=== PATIENT | female | born 1950 | race Caucasian/White ===

== ENCOUNTER → 2017-11-13 | Outpatient (CLI) | payer OTHER ==
[~2017-11-13] MED LIST: LOPRESSOR100 M1 PO
== END ==
LOC: M.CT 08:30
DX: Z13.6 Encounter for screening for cardiovascular disorders (principal)

== ENCOUNTER → 2018-01-19 | Outpatient (CLI) | payer MEDICARE ==
[2018-01-19 09:41] LABS: CHOLESTEROL 95 mg/dL (<200); HDL CHOLESTEROL 40 mg/dL (>40); LDL CHOLESTEROL 27 mg/dL (<100); TC:HDL 2.4 Ratio (Not establshd); TRIGLYCERIDE 144 mg/dL (<150); VLDL 29 mg/dL (<40)
[2018-01-19 09:43] LABS: SERUM ASSESSMENT Clear
== END ==
LOC: M.LAB 09:03
PROVIDERS: Internal Medicine Cardiovascular Disease
DX: E78.2 Mixed hyperlipidemia (principal)

== ENCOUNTER 2018-12-21 10:14 | Emergency (ER) | payer MEDICARE ==
[~2018-12-21] VITALS: Ht 170.2 cm; Wt 87.5 kg
[2018-12-21] MEDS ORDERED: NORVASC5 MG PO (10:29)
[2018-12-21] MEDS ORDERED: PROBIOTIC1 EAC1 PO (10:29)
[2018-12-21] MEDS ORDERED: ASPIR 8181 MG PO (10:29)
[2018-12-21] MEDS ORDERED: HYDROCHLOROTHIA25 M2 PO (10:29)
[2018-12-21] MEDS ORDERED: LOPRESSOR100 M1 PO (10:29)
[2018-12-21] MEDS ORDERED: HAIR-SKIN-NAIL1 EACH PO (10:30)
[2018-12-21] MEDS ORDERED: SUPER B COMPLE1 EAC2 PO (10:30)
[2018-12-21] MEDS ORDERED: AMOXICILLIN-CL1 EACH PO (10:30)
[2018-12-21] MEDS ORDERED: EFFER-K 10 MEQ10 ME1 PO (10:31)
[2018-12-21] MEDS ORDERED: HEART MEDICATION (10:32)
[2018-12-21 10:35] LABS: ABSOLUTE BASOPHILS 0.1 thou/uL (0.0-0.2); ABSOLUTE EOSINOPHILS 0.1 thou/uL (0.0-0.7); ABSOLUTE LYMPHOCYTES 1.2 thou/uL (0.8-5.3); ABSOLUTE MONOCYTES 0.6 thou/uL (0.0-1.2); ABSOLUTE NEUTROPHILS 5.7 thou/uL (1.6-8.1); BASOPHILS 1.2 %; EOSINOPHILS 1.8 %; HEMATOCRIT 37.1 % (37.0-47.0); HEMOGLOBIN 12.6 gm/dL (12.0-15.0); LYMPHOCYTES 15.6 %; MCH 27.4 pg (26.0-34.0); MCHC 33.8 g/dL (28.0-37.0); MCV 80.9 fL (80.0-100.0); MONOCYTES 7.8 %; MPV 7.9 fl. (7.2-11.1); NUCLEATED RBCS 0 /100WBC; PLATELET COUNT* 242 thou/uL (150-400); POLYS 73.6 %; RBC 4.59 mil/uL (4.20-5.00); RDW-CV 14.4 % (10.5-14.5); WBC 7.8 thou/uL (4.0-11.0)
[2018-12-21 10:46] LABS: APTT 29.9 Seconds (25.0-31.3)
[2018-12-21 10:48] LABS: ANION GAP 5 mmol/L (7-16); BUN 11 mg/dL (7-18); CHLORIDE 97 mmol/L (98-107); CO2 35 mmol/L (21-32); GLUCOSE 128 mg/dL (70-99); SODIUM 137 mmol/L (136-145)
[2018-12-21 10:50] LABS: POTASSIUM 2.6 mmol/L (3.5-5.1)
[2018-12-21 11:00] LABS: ALBUMIN 2.9 g/dL (3.4-5.0); NT-PRO BRAIN NAT PEPTIDE 63 pg/mL (<300); SGOT 24 U/L (15-37); SGPT 25 U/L (30-65); TOTAL BILIRUBIN 0.7 mg/dL (<0.1-1.0); TOTAL PROTEIN 7.2 g/dL (6.4-8.2); TROPONIN-I LEVEL <0.06 ng/mL (<0.06)
[2018-12-21 11:32] VITALS: BP 133/84
[2018-12-21 12:34] LABS: ALKALINE PHOSPHATASE 90 U/L (46-116)
--- NOTE | 2018-12-21 18:01 | EKG ---
[place] [address] ELECTROCARDIOGRAM REPORT Name: KATIE RICO Rhiannon Room: [facility]#: [id number] Admission: 12/21/18 Attend Phys: Discharge: 12/21/18 Date of : 54 Report #: [id number] THIS REPORT FOR: //name// [facility] ED Test Date: 2018-12-21 Test Time: 10:24:01 Pat Name: KATIE RICO Department: Room: Gender: F Leacher: : 1950 Requested By: Regan Sotomayor Order Number: [id number] MD: Brian Mena Measurements Intervals [place] Rate: 66 P: 25 SD: 181 QRS: -4 QRSD: 113 T: 4 QT: 406 QTc: 426 Interpretive Statements Sinus rhythm Compared to ECG 01/27/2008 09:31:17 Sinus bradycardia no longer present First degree AV block no longer present Electronically Signed On 12-21-2018 18:00:58 CDT by Brian Mena [email or web address] <ELECTRONICALLY SIGNED> By: Brian Mena MD, [facility] 12/21/18 1800 1024 1024 Brian Mena MD, FAC /EPI
== END 2018-12-21 11:31 | disposition home or self-care (01) ==
LOC: M.ERS 10:14
PROVIDERS: Family Medicine
DX: E87.6 Hypokalemia (principal); I10 Essential (primary) hypertension; Z85.51 Personal history of malignant neoplasm of bladder

== ENCOUNTER → 2019-09-15 | Outpatient (CLI) | payer MEDICARE ==
[~2019-09-15] MED LIST changes: +AMOXICILLIN-CL1 EACH PO; +ASPIR 8181 MG PO; +EFFER-K 10 MEQ10 ME1 PO; +HAIR-SKIN-NAIL1 EACH PO; +HEART MEDICATION; +HYDROCHLOROTHIA25 M2 PO; +NORVASC5 MG PO; +PROBIOTIC1 EAC1 PO; +SUPER B COMPLE1 EAC2 PO
== END ==
LOC: M.RAD 09-13 15:50
DX: Z12.31 Encounter for screening mammogram for malignant neoplasm of breast (principal); Z78.0 Asymptomatic menopausal state; M85.88 Other specified disorders of bone density and structure, other site

== ENCOUNTER → 2020-09-13 | Outpatient (CLI) | payer MEDICARE | LOC: M.RAD 07:59 | PROVIDERS: ATTEND Nurse Practitioner Family | DX: Z12.31 Encounter for screening mammogram for malignant neoplasm of breast (principal) ==

== ENCOUNTER → 2021-01-25 | Outpatient (CLI) | payer MEDICARE | LOC: M.LAB 05:21 | PROVIDERS: ATTEND Anesthesiology | DX: E87.6 Hypokalemia (principal) ==

== ENCOUNTER → 2021-02-14 | Outpatient (CLI) | payer MEDICARE | LOC: M.ULTRA 06:57 | PROVIDERS: ATTEND Nurse Practitioner Family | DX: R10.9 Unspecified abdominal pain (principal); Z90.49 Acquired absence of other specified parts of digestive tract ==